=== PATIENT | male | born 1955 | race Caucasian/White ===

== ENCOUNTER 2017-05-01 09:01 | Day surgery (SDC) | payer BC ==
[2017-04-30 08:38] VITALS: BMI 28.5
[~2017-05-01 09:01] MED LIST: LACTATED RINGERS 1,000 ML IV SCH
[2017-05-01] MEDS ORDERED: LIDOCAINE 1% 20 ML VIAL (10MG/ML) FOR IV START INTRADERMA ONE (10:20)
[2017-05-01 10:26] VITALS: RESP 16; TEMP 98.5
[2017-05-01] MEDS ORDERED: LIDOCAINE 1% INJ 10MG/ML (20 ML MDV) ONE (10:39)
[2017-05-01] MEDS ORDERED: PROPOFOL 10 MG/ML 20 ML VIAL IV ONE (10:39)
--- NOTE | 2017-05-01 11:06 | P.PCN ---
Date of Procedure: 05/01/17 Preoperative Diagnosis: Postoperative Diagnosis: Procedure(s) Performed: Procedure: Total colonoscopy. Preoperative diagnosis: Screening for neoplasia. Postoperative diagnosis: Sigmoid diverticulosis with no evidence of acute diverticulitis, strictures, polyps or cancer. Preparation: HalfLytely prep. Sedation: Was provided by anesthesia. Brief clinical history: The patient is a 61-year-old male who is scheduled for this evaluation because of history of polyps for screening for neoplasia. His last exam was around 6 years ago. The patient has no abdominal complaints, bleeding or anemia. Procedure: With the patient on his left lateral decubitus position and after informed consent and adequate sedation, the perianal area was inspected and it did not show any fissures or fistulas. There were no masses felt on digital rectal examination. The Olympus CFQ 160L video colonoscope was then inserted in the rectum in the usual fashion and advanced to the cecum. There were multiple diverticular orifices seen scattered in the sigmoid with no evidence of acute diverticulitis or strictures. No polyps or tumors were seen. The mucosa appeared healthy. No other pathology noted. The patient tolerated the procedure well. Plan: The patient was reassured. Discussed dietary measures. He will follow up with you as planned. I recommended repeat exam in 5 years. Implants: Indications for Procedure: Operative Findings: Description of Procedure:
[2017-05-01 11:26] VITALS: BP 132/90; PULSE 44
== END 2017-05-01 11:45 | disposition home or self-care (01) ==
LOC: ORWHC2ENDO 09:01
DX: Z12.11 Encounter for screening for malignant neoplasm of colon (principal); K57.30 Diverticulosis of large intestine without perforation or abscess without bleeding; Z86.010 Personal history of colon polyps; I10 Essential (primary) hypertension; E78.5 Hyperlipidemia, unspecified; F17.290 Nicotine dependence, other tobacco product, uncomplicated; Z79.899 Other long term (current) drug therapy
CPT/HCPCS: J2001; J2704; G0105; 45378

== ENCOUNTER → 2017-09-23 | Outpatient (CLI) | payer BC ==
[2017-09-23 07:34] LABS: HCT 45.5 % (39.0-53.0); HGB 15.2 gm/dL (13.0-17.5); MCH 29.5 pg (25.0-35.0); MCHC 33.3 g/dL (31.0-37.0); MCV 88.7 fL (80.0-100.0); Mean Platelet Volume 6.6; Platelet Count 322 k/uL (150-450); RBC 5.13 m/uL (4.30-5.90); RDW 13.1 % (11.5-15.5); WBC 5.1 k/uL (3.8-10.6)
[2017-09-23 07:58] LABS: Appearance,Urine Clear (Clear); Bilirubin,Urine Negative (Negative); Blood,Urine Trace (Negative); Color,Urine Yellow; Glucose,Urine (UA) Negative (Negative); Ketones,Urine Negative (Negative); Leukocyte Esterase,Urine Negative (Negative); Mucus,Urine Occasional /hpf; Nitrite,Urine Negative (Negative); PH, Urine 5.5 (5.0-8.0); Protein,Urine 1+ (Negative); RBC,Urine 1 /hpf (0-5); Specific Gravity,Urine 1.019 (1.001-1.035); Urobilinogen,Urine <2.0 mg/dL (<2.0); WBC,Urine 1 /hpf (0-5)
[2017-09-23 10:28] LABS: ALT 44 U/L (21-72); AST 29 U/L (17-59); Albumin 3.9 g/dL (3.5-5.0); Alkaline Phosphatase 93 U/L (38-126); Anion Gap 7 mmol/L; Blood Urea Nitrogen 20 mg/dL (9-20); Calcium 9.9 mg/dL (8.4-10.2); Carbon Dioxide 30 mmol/L (22-30); Chloride 107 mmol/L (98-107); Cholesterol 173 mg/dL (<200); Glucose 106 mg/dL (74-99); HDL Cholesterol 38 mg/dL (40-60); LDL Cholesterol,Calculated 111 mg/dL (0-99); Potassium 4.5 mmol/L (3.5-5.1); Sodium 144 mmol/L (137-145); Total Bilirubin 0.5 mg/dL (0.2-1.3); Total Protein 6.5 g/dL (6.3-8.2); Triglycerides 122 mg/dL (<150)
[2017-09-23 10:56] LABS: Prostate Specific Antigen 0.78 ng/mL (0.00-4.00)
== END | disposition home or self-care (01) ==
LOC: LABWHC1 07:14
PROVIDERS: ATTEND Family Medicine
DX: Z00.00 Encounter for general adult medical examination without abnormal findings (principal); E78.00 Pure hypercholesterolemia, unspecified
CPT/HCPCS: 36415; 80053; 80061; 81001; 84153; 85027

== ENCOUNTER → 2018-01-23 | Outpatient (CLI) | payer BC ==
[2018-01-23 07:20] LABS: Calcium 9.7 mg/dL (8.4-10.2); Potassium 4.8 mmol/L (3.5-5.1)
== END | disposition home or self-care (01) ==
LOC: LABWHC1 06:37
PROVIDERS: ATTEND Family Medicine
DX: I10 Essential (primary) hypertension (principal)
CPT/HCPCS: 36415; 80048

== ENCOUNTER → 2019-04-13 | Outpatient (CLI) | payer BC ==
[2019-04-13 08:05] LABS: Basophils # (A) 0.1 k/uL (0-0.2); Basophils % (A) 1 %; Eosinophils # (A) 0.2 k/uL (0-0.7); Eosinophils % (A) 4 %; HCT 40.6 % (39.0-53.0); HGB 13.6 gm/dL (13.0-17.5); Lymphocytes # (A) 1.4 k/uL (1.0-4.8); Lymphocytes % (A) 27 %; MCH 29.9 pg (25.0-35.0); MCHC 33.5 g/dL (31.0-37.0); MCV 89.4 fL (80.0-100.0); Mean Platelet Volume 6.8; Monocytes # (A) 0.4 k/uL (0-1.0); Monocytes % (A) 8 %; Neutrophils % (A) 57 %; Platelet Count 279 k/uL (150-450); RBC 4.55 m/uL (4.30-5.90); RDW 12.5 % (11.5-15.5); WBC 5.2 k/uL (3.8-10.6)
[2019-04-13 11:23] LABS: African American GFR (CKD) 66.8 (60.0-200.0); Anion Gap 10.5 mmol/L (4.00-12.00); BUN/Creat Ratio 15.38 Ratio (12.00-20.00); Calcium 9.7 mg/dL (8.7-10.3); Carbon Dioxide 28.5 mmol/L (21.6-31.8); LDL Cholesterol,Calculated 95.8 mg/dL (0.0-131.0); Potassium 4.7 mmol/L (3.5-5.5); VLDL Calculation 31.2 mg/dL (5.00-40.00)
== END | disposition home or self-care (01) ==
LOC: LABWHC1 06:31
PROVIDERS: ATTEND Family Medicine
DX: Z00.00 Encounter for general adult medical examination without abnormal findings (principal); E78.00 Pure hypercholesterolemia, unspecified; I10 Essential (primary) hypertension
CPT/HCPCS: 36415; 80048; 80061; 84450; 84460; 85025; 86803

== ENCOUNTER → 2019-10-15 | Outpatient (CLI) | payer BC ==
[2019-10-15 07:58] LABS: HGB 14.9 gm/dL (13.0-17.5); MCHC 33.2 g/dL (31.0-37.0); MCV 90.5 fL (80.0-100.0); Mean Platelet Volume 7.1; Platelet Count 300 k/uL (150-450); RBC 4.97 m/uL (4.30-5.90); RDW 13.2 % (11.5-15.5); WBC 5.5 k/uL (3.8-10.6)
[2019-10-15 08:02] LABS: Appearance,Urine Clear (Clear); Bilirubin,Urine Negative (Negative); Blood,Urine Negative (Negative); Color,Urine Yellow; Glucose,Urine (UA) Negative (Negative); Ketones,Urine Negative (Negative); Leukocyte Esterase,Urine Negative (Negative); Nitrite,Urine Negative (Negative); PH, Urine 5.5 (5.0-8.0); Protein,Urine Trace (Negative); Specific Gravity,Urine 1.017 (1.001-1.035); Urobilinogen,Urine <2.0 mg/dL (<2.0)
[2019-10-15 11:30] LABS: African American GFR (CKD) 66.8 (60.0-200.0); Albumin 4.2 g/dL (3.80-4.90); Albumin/Globulin Ratio 2.1 (1.60-3.17); Anion Gap 6.8 mmol/L (4.00-12.00); BUN/Creat Ratio 16.92 Ratio (12.00-20.00); Calcium 9.8 mg/dL (8.7-10.3); Carbon Dioxide 27.2 mmol/L (21.6-31.8); Chol/HDL Ratio 3.85; LDL Cholesterol,Calculated 116.8 mg/dL (0.0-131.0); Non-African American GFR(CKD) 57.7 (60.0-200.0); Potassium 4.9 mmol/L (3.5-5.5); Total Bilirubin 0.6 mg/dL (0.2-1.2); Total Protein 6.2 g/dL (6.2-8.2); VLDL Calculation 20.2 mg/dL (5.00-40.00)
[2019-10-15 13:54] LABS: Hemoglobin A1C 5.4 % (4.0-6.0)
== END | disposition home or self-care (01) ==
LOC: LABWHC1 07:22
PROVIDERS: ATTEND Family Medicine
DX: Z00.00 Encounter for general adult medical examination without abnormal findings (principal)
CPT/HCPCS: 36415; 80053; 80061; 81003; 82272; 83036; 84153; 85027

== ENCOUNTER → 2020-10-03 | Outpatient (CLI) | payer BC ==
[2020-10-03 07:38] LABS: Appearance,Urine Clear (Clear); Bilirubin,Urine Negative (Negative); Blood,Urine Negative (Negative); Color,Urine Light Yellow; Glucose,Urine (UA) Negative (Negative); HCT 46.6 % (39.0-53.0); HGB 15.8 gm/dL (13.0-17.5); Ketones,Urine Negative (Negative); Leukocyte Esterase,Urine Negative (Negative); MCH 30.4 pg (25.0-35.0); MCHC 33.8 g/dL (31.0-37.0); MCV 89.9 fL (80.0-100.0); Mean Platelet Volume 7.1; Nitrite,Urine Negative (Negative); PH, Urine 5.5 (5.0-8.0); Platelet Count 306 k/uL (150-450); Protein,Urine Trace (Negative); RBC 5.19 m/uL (4.30-5.90); RDW 13.1 % (11.5-15.5); Specific Gravity,Urine 1.017 (1.001-1.035); Urobilinogen,Urine <2.0 mg/dL (<2.0)
[2020-10-03 12:21] LABS: African American GFR (CKD) 73.1 (60.0-200.0); Albumin 4.2 g/dL (3.80-4.90); Anion Gap 6.5 mmol/L (4.00-12.00); BUN/Creat Ratio 20.83 Ratio (12.00-20.00); Calcium 9.8 mg/dL (8.7-10.3); Carbon Dioxide 27.5 mmol/L (21.6-31.8); Globulin 2.1 g/dL (1.6-3.3); Non-African American GFR(CKD) 63.1 (60.0-200.0); Potassium 4.7 mmol/L (3.5-5.5); Total Bilirubin 0.6 mg/dL (0.2-1.2); Total Protein 6.3 g/dL (6.2-8.2)
[2020-10-03 12:30] LABS: Prostate Specific Antigen 0.7 ng/mL (0.0-4.5)
[2020-10-03 13:41] LABS: Hemoglobin A1C 5.3 % (4.0-6.0)
== END | disposition home or self-care (01) ==
LOC: LABWHC1 07:06
PROVIDERS: ATTEND Family Medicine
DX: Z00.00 Encounter for general adult medical examination without abnormal findings (principal)
CPT/HCPCS: 36415; 80053; 81003; 83036; 84153; 85027

== ENCOUNTER → 2021-07-05 | Outpatient (CLI) | payer BC ==
[2021-07-05 11:43] LABS: INR 0.9 (<1.2); Partial Thromboplastin Time 25.2 sec (22.0-30.0); Prothrombin Time 9.9 sec (9.0-12.0)
[2021-07-05 12:07] LABS: Appearance,Urine Clear (Clear); Bilirubin,Urine Negative (Negative); Blood,Urine Negative (Negative); Color,Urine Yellow; Glucose,Urine (UA) Negative (Negative); Hyaline Casts,Urine 1 /lpf (0-2); Ketones,Urine Negative (Negative); Leukocyte Esterase,Urine Negative (Negative); Mucus,Urine Occasional /hpf; Nitrite,Urine Negative (Negative); PH, Urine 5.5 (5.0-8.0); Protein,Urine 2+ (Negative); RBC,Urine <1 /hpf (0-5); Specific Gravity,Urine 1.026 (1.001-1.035); Urobilinogen,Urine <2.0 mg/dL (<2.0); WBC,Urine <1 /hpf (0-5)
[2021-07-05 16:31] LABS: Basophils # (A) 0.06 X 10*3/uL (0.00-0.10); Basophils % (A) 0.8 %; Eosinophils # (A) 0.19 X 10*3/uL (0.04-0.35); Eosinophils % (A) 2.4 %; HCT 48.8 % (39.6-50.0); Lymphocytes # (A) 1.65 X 10*3/uL (0.90-5.00); Lymphocytes % (A) 20.7 %; MCHC 32.8 g/dL (32.0-37.0); MCV 94.6 fL (80.0-97.0); Mean Platelet Volume 9.9 fL (9.5-12.2); Monocytes # (A) 0.91 X 10*3/uL (0.20-1.00); Monocytes % (A) 11.4 %; Neutrophils # (A) 5.08 X 10*3/uL (1.80-7.70); Neutrophils % (A) 63.8 %; Platelet Count 300 X 10*3/uL (140-440); RBC 5.16 X 10*6/uL (4.40-5.60); RDW 13.5 % (11.5-14.5); WBC 7.96 X 10*3/uL (4.50-10.00)
[2021-07-05 19:07] LABS: African American GFR (CKD) 60.3 (60.0-200.0); Anion Gap 11.3 mmol/L (4.00-12.00); BUN/Creat Ratio 17.21 Ratio (12.00-20.00); Blood Urea Nitrogen 24.1 mg/dL (9.0-27.0); Calcium 10.2 mg/dL (8.7-10.3); Carbon Dioxide 23.7 mmol/L (21.6-31.8); Potassium 5.1 mmol/L (3.5-5.5)
== END | disposition home or self-care (01) ==
LOC: LABWHC1 10:29
PROVIDERS: ATTEND Family Medicine
DX: Z01.812 Encounter for preprocedural laboratory examination (principal)
CPT/HCPCS: 36415; 80048; 81001; 84450; 84460; 85025; 85610; 85730

== ENCOUNTER → 2021-10-26 | Outpatient (CLI) | payer BC ==
[2021-10-26 09:10] LABS: Appearance,Urine Clear (Clear); Bilirubin,Urine Negative (Negative); Blood,Urine Negative (Negative); Color,Urine Yellow; Glucose,Urine (UA) Negative (Negative); Hyaline Casts,Urine 3 /lpf (0-2); Ketones,Urine Negative (Negative); Leukocyte Esterase,Urine Negative (Negative); Mucus,Urine Few /hpf; Nitrite,Urine Negative (Negative); PH, Urine 5.5 (5.0-8.0); Protein,Urine 1+ (Negative); RBC,Urine 1 /hpf (0-5); Specific Gravity,Urine 1.021 (1.001-1.035); Squamous Epithelial Cell,Urine <1 /hpf (0-4); Urobilinogen,Urine <2.0 mg/dL (<2.0); WBC,Urine <1 /hpf (0-5)
[2021-10-26 11:02] LABS: Basophils # (A) 0.08 X 10*3/uL (0.00-0.10); Basophils % (A) 1.3 %; Eosinophils % (A) 3.1 %; HCT 44.2 % (39.6-50.0); HGB 14.4 g/dL (13.0-17.0); Immature Grans, Automated 0.5 %; Lymphocytes # (A) 1.78 X 10*3/uL (0.90-5.00); Lymphocytes % (A) 27.9 %; MCH 29.9 pg (27.0-32.0); MCHC 32.6 g/dL (32.0-37.0); MCV 91.9 fL (80.0-97.0); Mean Platelet Volume 9.5 fL (9.5-12.2); Monocytes # (A) 0.76 X 10*3/uL (0.20-1.00); Monocytes % (A) 11.9 %; NRBC Per 100 WBC 0 /100 WBCS (0.0-0.0); Neutrophils # (A) 3.52 X 10*3/uL (1.80-7.70); Neutrophils % (A) 55.3 %; Platelet Count 329 X 10*3/uL (140-440); RBC 4.81 X 10*6/uL (4.40-5.60); RDW 12.7 % (11.5-14.5); WBC 6.37 X 10*3/uL (4.50-10.00)
[2021-10-26 11:30] LABS: ALT 16 U/L (10-49); AST 20 U/L (14-35); African American GFR (CKD) 60.3 (60.0-200.0); Albumin 4.1 g/dL (3.8-4.9); Albumin/Globulin Ratio 1.58 (1.60-3.17); Alkaline Phosphatase 111 U/L (41-126); BUN/Creat Ratio 14.64 Ratio (12.00-20.00); Blood Urea Nitrogen 20.5 mg/dL (9.0-27.0); Calcium 9.6 mg/dL (8.7-10.3); Carbon Dioxide 24.3 mmol/L (20.0-27.5); Chloride 104 mmol/L (96-109); Globulin 2.6 g/dL (1.6-3.3); Glucose 103 mg/dL (70-110); LDL Cholesterol,Calculated 149.2 mg/dL (0.0-131.0); Potassium 4.7 mmol/L (3.5-5.5); Sodium 139 mmol/L (135-145); Total Protein 6.7 g/dL (6.2-8.2)
== END | disposition home or self-care (01) ==
LOC: LABWHC1 08:04
PROVIDERS: ATTEND Family Medicine
DX: Z01.812 Encounter for preprocedural laboratory examination (principal); I10 Essential (primary) hypertension
CPT/HCPCS: 36415; 80053; 80061; 81001; 82306; 83036; 84153; 85025

== ENCOUNTER → 2021-11-07 | Outpatient (CLI) | payer BC ==
[2021-11-07 14:18] LABS: African American GFR (CKD) 60.3 (60.0-200.0); Anion Gap 10.5 mmol/L (10.00-18.00); BUN/Creat Ratio 16.43 Ratio (12.00-20.00); Calcium 10.1 mg/dL (8.7-10.3); Carbon Dioxide 24.5 mmol/L (20.0-27.5); Potassium 4.4 mmol/L (3.5-5.5)
== END | disposition home or self-care (01) ==
LOC: LABWHC1 07:30
PROVIDERS: ATTEND Family Medicine
DX: R89.9 Unspecified abnormal finding in specimens from other organs, systems and tissues (principal)
CPT/HCPCS: 36415; 80048

== ENCOUNTER 2022-05-29 07:22 | Day surgery (SDC) | payer BC ==
[~2022-05-29 07:22] MED LIST changes: +LIDOCAINE 1% (10MG/ML) FOR IV START INTRADERMA PRN
[2022-05-29 08:21] VITALS: RESP 16; TEMP 97.9
[2022-05-29] MEDS ORDERED: PROPOFOL 10 MG/ML 20 ML VIAL IV ONE (08:55)
--- NOTE | 2022-05-29 09:09 | P.PCN ---
Date of Procedure: 05/29/22 Procedure(s) Performed: BRIEF HISTORY: Patient is a 66-year-old pleasant white male scheduled for an elective colonoscopy as a part of screening for colon rectal neoplasia. PROCEDURE PERFORMED: Colonoscopy. PREOPERATIVE DIAGNOSIS: Screening for colon cancer. IV sedation per Anesthesia. PROCEDURE: After informed consent was obtained, the patient, was brought into the endoscopy unit. IV sedation was administered by Anesthesia under continuous monitoring. Digital rectal examination was normal. Initially the Olympus CF-160 flexible video colonoscope was then inserted in the rectum, gradually advanced into the cecum without any difficulty. Careful examination was performed as the scope was gradually being withdrawn. Ileocecal valve and the appendiceal orifice were visualized and appeared normal. Prep was excellent. Mucosa of the cecum, ascending colon, transverse colon, descending colon, sigmoid colon, and rectum appeared normal. Retroflexion was performed in the rectum and no lesions were seen. Scattered sigmoid diverticulosis. The patient tolerated the procedure well. IMPRESSION: Normal-appearing colon from rectum to cecum with no evidence of colorectal neoplasia . Scattered sigmoid diverticulosis. RECOMMENDATIONS: Findings of this examination were discussed with the patient as well as his family. He was advised to have a repeat screening colonoscopy in 10 years..
[2022-05-29] MEDS ORDERED: LABETALOL SYRINGE 5 MG/ML IV ONE (09:31)
[2022-05-29 09:46] VITALS: PULSE 63
[2022-05-29 09:52] VITALS: BP 183/100
== END 2022-05-29 10:01 | disposition home or self-care (01) ==
LOC: ORWHC2ENDO 07:22
PROVIDERS: ATTEND Internal Medicine Gastroenterology
DX: Z12.11 Encounter for screening for malignant neoplasm of colon (principal); K57.32 Diverticulitis of large intestine without perforation or abscess without bleeding; I10 Essential (primary) hypertension; E78.5 Hyperlipidemia, unspecified; Z87.891 Personal history of nicotine dependence
CPT/HCPCS: 45378; J2704

== ENCOUNTER → 2022-07-02 | Outpatient (CLI) | payer BC ==
[2022-07-02 13:05] LABS: INR 0.9 (<1.2); Partial Thromboplastin Time 25.6 sec (22.0-30.0); Prothrombin Time 10.3 sec (9.0-12.0)
[2022-07-02 18:17] LABS: Basophils # (A) 0.06 X 10*3/uL (0.00-0.10); Basophils % (A) 0.9 %; Eosinophils # (A) 0.14 X 10*3/uL (0.04-0.35); Eosinophils % (A) 2.1 %; HCT 42.2 % (39.6-50.0); HGB 14.6 g/dL (13.0-17.0); Immature Grans, Automated 0.6 %; Lymphocytes # (A) 1.85 X 10*3/uL (0.90-5.00); Lymphocytes % (A) 28.1 %; MCH 31.1 pg (27.0-32.0); MCHC 34.6 g/dL (32.0-37.0); Mean Platelet Volume 9.5 fL (9.5-12.2); Monocytes # (A) 0.68 X 10*3/uL (0.20-1.00); Monocytes % (A) 10.3 %; NRBC Per 100 WBC 0 /100 WBCS (0.0-0.0); Neutrophils # (A) 3.82 X 10*3/uL (1.80-7.70); Platelet Count 302 X 10*3/uL (140-440); RBC 4.69 X 10*6/uL (4.40-5.60); RDW 12.9 % (11.5-14.5); WBC 6.59 X 10*3/uL (4.50-10.00)
[2022-07-02 18:25] LABS: African American GFR (CKD) 58.3 (60.0-200.0); Anion Gap 10.4 mmol/L (10.00-18.00); BUN/Creat Ratio 13.64 Ratio (12.00-20.00); Blood Urea Nitrogen 19.5 mg/dL (9.0-27.0); Calcium 9.8 mg/dL (8.7-10.3); Carbon Dioxide 25.6 mmol/L (20.0-27.5); Non-African American GFR(CKD) 50.3 (60.0-200.0); Potassium 4.7 mmol/L (3.5-5.5)
[2022-07-02 19:50] LABS: Appearance,Urine Clear (Clear); Bilirubin,Urine Negative (Negative); Blood,Urine Negative (Negative); Color,Urine Dark Yellow (Yellow); Ketones,Urine Trace mg/dL (Negative); Nitrite,Urine Negative (Negative); PH, Urine 5.5 (5.0-8.0); Specific Gravity,Urine 1.019 (1.001-1.030)
[2022-07-02 19:56] LABS: Bacteria,Urine None Seen /HPF (None Seen)
== END | disposition home or self-care (01) ==
LOC: LABWHC1 12:20
PROVIDERS: ATTEND Family Medicine
DX: Z01.812 Encounter for preprocedural laboratory examination (principal)
CPT/HCPCS: 36415; 80048; 81001; 84450; 84460; 85025; 85610; 85730

== ENCOUNTER → 2022-07-10 | Outpatient (CLI) | payer BC ==
[2022-07-10 16:14] LABS: African American GFR (CKD) 54 (>60 ml/min/1.73 sqM); Anion Gap 10 mmol/L; Blood Urea Nitrogen 21 mg/dL (9-20); Calcium 9.3 mg/dL (8.4-10.2); Carbon Dioxide 26 mmol/L (22-30); Chloride 104 mmol/L (98-107); Glucose 98 mg/dL (74-99); Non-African American GFR(CKD) 46 (>60 ml/min/1.73 sqM); Potassium 4.5 mmol/L (3.5-5.1); Sodium 140 mmol/L (137-145)
[2022-07-10 16:20] LABS: Creatinine 24 Hour,Urine 1987.3 mg/24hr (1000.0-2000.0)
[2022-07-11 08:19] LABS: Total Protein 24 Hour,Urine 552.5 mg/24Hr (0.0-165.0); Total Volume 24 Hour,Urine 1700 mL
== END ==
LOC: LABWHC1 07-09 12:24
PROVIDERS: ATTEND Family Medicine
DX: Z01.812 Encounter for preprocedural laboratory examination (principal); R89.9 Unspecified abnormal finding in specimens from other organs, systems and tissues
CPT/HCPCS: 36415; 80048; 81050; 82575; 84156

== ENCOUNTER → 2022-08-13 | Outpatient (CLI) | payer BC ==
--- NOTE | 2022-08-13 16:35 | US ---
EXAMINATION TYPE: US kidneys/renal and bladder DATE OF EXAM: 08/13/2022 COMPARISON: NONE CLINICAL HISTORY: R89.9 ABN FINDING IN SPECIMENS FROM OTHER ORGANS. EXAM MEASUREMENTS: Right Kidney: 8.5 x 4.3 x 5.0 cm Left Kidney: 12.6 x 5.6 x 4.9 cm Right Kidney: multiple cysts noted, inferior cyst with slightly irregular borders and possible physician internist al echoes measuring 2.8 x 3. 2 x 2.7cm, there is a possible mass midline measuring 2.8 x 2.2 x 2.0cm, superior cyst with internal echoes measuring 2.5 x 1.9 x 1.9cm Left Kidney: possible lateral mass measuring 4.0 x 3.9 x 4.2cm, this was more difficult to see in tra nsverse and may be lobular contour with mass effect Bladder: uterocele vs other etiology IMPRESSION: Possible masses bilateral kidneys with suggestion of ureterocele in the left urinary bladder. Additio nal workup with contrast CT is recommended.
== END | disposition home or self-care (01) ==
LOC: RADUSWWP 13:40
PROVIDERS: ATTEND Family Medicine
DX: R89.9 Unspecified abnormal finding in specimens from other organs, systems and tissues (principal)
CPT/HCPCS: 76770

== ENCOUNTER → 2022-09-17 | Outpatient (CLI) | payer BC ==
--- NOTE | 2022-09-17 16:16 | CT ---
EXAMINATION TYPE: CT abdomen w con CT DLP: 902.7 mGycm, Automated exposure control for dose reduction was used. 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 Sagittal and coronal reformats were created on a separate works tation. With and without IV contrast. Contrast used:70ml mL of Isovue 300 with IV Contrast, Oral contrast used: with Oral Contrast FINDINGS: LOWER CHEST: Unremarkable ABDOMEN LIVER: Unremarkable GALLBLADDER AND BILE DUCTS: Unremarkable. PANCREAS: Unremarkable. SPLEEN: Unremarkable. ADRENAL GLANDS: Unremarkable. KIDNEYS AND URETERS: Bilateral renal cysts. Cysts measure up to 2.7 cm on the right hand 1.2 cm is o n the left. There is a lobulated contour to the kidneys bilaterally. Scattered areas of cortical thin jerzy on the left. No evidence of hydronephrosis or renal calculus. The visualized ureters are unremar kable. Distal ureters are not visualized. STOMACH AND BOWEL: No evidence of bowel obstruction. PERITONEUM/RETROPERITONEUM: No evidence of pneumoperitoneum or free fluid. VASCULATURE: No evidence of aortic aneurysm. MUSCULOSKELETAL: No acute osseous abnormalities, multilevel disc degeneration changes with osteophyte s and disc bulging present. LYMPH NODES: No gross evidence for lymphadenopathy. SOFT TISSUE/ABDOMINAL WALL: Unremarkable IMPRESSION: Lobulated kidney contour with bilateral renal cysts. No evidence for suspicious mass. No urolithiasis or obstructive uropathy. The urinary bladder was not in the [id number] on this CT abdomen renal p rotocol exam.
== END | disposition home or self-care (01) ==
LOC: RADCTMAIN 14:44
PROVIDERS: ATTEND Family Medicine
DX: N28.1 Cyst of kidney, acquired (principal); N28.89 Other specified disorders of kidney and ureter
CPT/HCPCS: 82565; 84520; 74160; 36415; Q9967 ×2

== ENCOUNTER → 2023-02-13 | Outpatient (CLI) | payer BC ==
[2023-02-13 08:26] LABS: Creatinine,Urine Random 154.4 mg/dL; Protein/Creatinine Ratio,Urine 0.162
[2023-02-13 10:54] LABS: Basophils # (A) 0.06 X 10*3/uL (0.00-0.10); Basophils % (A) 1.2 %; Eosinophils # (A) 0.19 X 10*3/uL (0.04-0.35); Eosinophils % (A) 3.9 %; HCT 40.9 % (39.6-50.0); HGB 13.3 g/dL (13.0-17.0); Immature Grans, Automated 0.6 %; Lymphocytes % (A) 24.6 %; MCH 29.8 pg (27.0-32.0); MCHC 32.5 g/dL (32.0-37.0); MCV 91.5 fL (80.0-97.0); Monocytes # (A) 0.53 X 10*3/uL (0.20-1.00); Monocytes % (A) 10.9 %; NRBC Per 100 WBC 0 /100 WBCS (0.0-0.0); Neutrophils # (A) 2.86 X 10*3/uL (1.80-7.70); Neutrophils % (A) 58.8 %; Platelet Count 376 X 10*3/uL (140-440); RBC 4.47 X 10*6/uL (4.40-5.60); RDW 12.9 % (11.5-14.5); WBC 4.87 X 10*3/uL (4.50-10.00)
[2023-02-13 11:12] LABS: % Iron Saturation 22.35 (15.00-50.00); ALT 17 U/L (10-49); AST 19 U/L (14-35); Alkaline Phosphatase 136 U/L (41-126); BUN/Creat Ratio 15.46 Ratio (12.00-20.00); Blood Urea Nitrogen 20.1 mg/dL (9.0-27.0); Calcium 9.8 mg/dL (8.7-10.3); Carbon Dioxide 24.5 mmol/L (20.0-27.5); Chloride 106 mmol/L (96-109); Glucose 119 mg/dL (70-110); Iron 68 ug/dL (65-175); Non-African American GFR(CKD) 56.1 (60.0-200.0); Phosphorus 3.4 mg/dL (2.4-5.1); Potassium 4.8 mmol/L (3.5-5.5); Sodium 141 mmol/L (135-145); Total Iron Binding Capacity 305 ug/dL (228-460); Uric Acid 7.7 mg/dL (3.7-8.7)
[2023-02-13 11:17] LABS: Chol/HDL Ratio 3.83 Ratio; Creatine Kinase 180 U/L (35-257); LDL Cholesterol,Calculated 92.9 mg/dL (0.0-131.0); VLDL Calculation 17.16 mg/dL (5.00-40.00)
[2023-02-13 11:31] LABS: Appearance,Urine Clear (Clear); Bilirubin,Urine Negative (Negative); Blood,Urine Negative (Negative); Color,Urine Yellow (Yellow); Ketones,Urine Negative (Negative); Nitrite,Urine Negative (Negative); PH, Urine 5.5 (5.0-8.0); Specific Gravity,Urine 1.019 (1.001-1.030); Urobilinogen,Urine 0.2 (0.2,1.0)
[2023-02-13 14:25] LABS: Anti-DNA, DS unit <1.0 IU/mL; DNA Double-Stranded NEGATIVE (NEGATIVE)
[2023-02-14 12:36] LABS: Free Kappa Lt Chain Qnt, Serum 3.62 mg/dL (0.33-1.94); Free Lambda Lt Chain Qnt, Seru 3.03 mg/dL (0.57-2.63)
[2023-02-14 13:50] LABS: C-ANCA <1:20 Titer (<1:20)
== END | disposition home or self-care (01) ==
LOC: LABWHC1 07:01
PROVIDERS: ATTEND Internal Medicine Nephrology
DX: Z00.00 Encounter for general adult medical examination without abnormal findings (principal); E55.9 Vitamin D deficiency, unspecified; N25.81 Secondary hyperparathyroidism of renal origin; M10.9 Gout, unspecified; N39.0 Urinary tract infection, site not specified; D63.1 Anemia in chronic kidney disease; N18.31 Chronic kidney disease, stage 3a
CPT/HCPCS: 36415; 80053; 80061; 81001; 82043; 82306; 82550; 82570; 82728; 83036; 83516; 83540; 83550; 83735; 83883; 83970; 84100; 84153; 84156; 84550; 85025; 86038; 86160; 86162; 86225; 86255; 86334; 86335

== ENCOUNTER → 2023-07-24 | Outpatient (CLI) | payer BC ==
[2023-07-24 14:18] LABS: Appearance,Urine Clear (Clear); Bilirubin,Urine Negative (Negative); Blood,Urine Negative (Negative); Color,Urine Yellow; Glucose,Urine (UA) Negative (Negative); Ketones,Urine Negative (Negative); Leukocyte Esterase,Urine Negative (Negative); Mucus,Urine Rare /hpf; Nitrite,Urine Negative (Negative); PH, Urine 5.5 (5.0-8.0); Protein,Urine 1+ (Negative); RBC,Urine 2 /hpf (0-5); Specific Gravity,Urine 1.019 (1.001-1.035); Urobilinogen,Urine <2.0 mg/dL (<2.0); WBC,Urine <1 /hpf (0-5)
[2023-07-24 14:25] LABS: INR 0.9 (<1.2); Partial Thromboplastin Time 26.5 sec (22.0-30.0); Prothrombin Time 10.2 sec (10.0-12.5)
[2023-07-24 21:48] LABS: Basophils # (A) 0.04 X 10*3/uL (0.00-0.10); Basophils % (A) 0.6 %; Eosinophils # (A) 0.18 X 10*3/uL (0.04-0.35); Eosinophils % (A) 2.8 %; HGB 14.4 g/dL (13.0-17.0); Lymphocytes # (A) 1.49 X 10*3/uL (0.90-5.00); MCH 30.6 pg (27.0-32.0); MCHC 32.7 g/dL (32.0-37.0); MCV 93.6 FL (80.0-97.0); Mean Platelet Volume 9.3 FL (9.5-12.2); Monocytes # (A) 0.73 X 10*3/uL (0.20-1.00); Monocytes % (A) 11.3 %; NRBC Per 100 WBC 0 X 10*3/uL (0.00-0.01); Neutrophils # (A) 3.97 X 10*3/uL (1.80-7.70); Neutrophils % (A) 61.4 %; Platelet Count 326 X 10*3/uL (140-440); RDW 13.5 % (11.5-14.5); WBC 6.47 X 10*3/uL (4.50-10.00)
[2023-07-25 02:52] LABS: ALT 16 U/L (10-49); AST 16 U/L (14-35); Albumin/Globulin Ratio 1.67 Ratio (1.60-3.17); Alkaline Phosphatase 138 U/L (41-126); BUN/Creat Ratio 15.86 Ratio (12.00-20.00); Blood Urea Nitrogen 22.2 mg/dL (9.0-27.0); Calcium 9.9 mg/dL (8.7-10.3); Carbon Dioxide 26.5 mmol/L (21.6-31.8); Chloride 104 mmol/L (96-109); Globulin 2.4 g/dL (1.6-3.3); Glucose 91 mg/dL (70-110); Potassium 4.8 mmol/L (3.5-5.5); Sodium 139 mmol/L (135-145); Total Bilirubin 0.4 mg/dL (0.3-1.2); Total Protein 6.4 g/dL (6.2-8.2)
== END | disposition home or self-care (01) ==
LOC: LABWHC1 10:34
PROVIDERS: ATTEND Family Medicine
DX: Z01.812 Encounter for preprocedural laboratory examination (principal)
CPT/HCPCS: 36415; 80053; 81001; 85025; 85610; 85730

== ENCOUNTER → 2024-01-28 | Outpatient (CLI) | payer BC ==
[2024-01-28 14:31] LABS: Appearance,Urine Clear (Clear); Bilirubin,Urine Negative (Negative); Blood,Urine Negative (Negative); Color,Urine Yellow (Yellow); Ketones,Urine Negative (Negative); Nitrite,Urine Negative (Negative); Specific Gravity,Urine 1.017 (1.001-1.030); Urobilinogen,Urine 0.2 E.U./DL
[2024-01-28 14:34] LABS: HCT 44.7 % (39.6-50.0); HGB 14.8 g/dL (13.0-17.0); MCH 30.5 pg (27.0-32.0); MCHC 33.1 g/dL (32.0-37.0); Mean Platelet Volume 9.6 FL (9.5-12.2); NRBC Per 100 WBC 0 X 10*3/uL (0.00-0.01); Platelet Count 351 X 10*3/uL (140-440); RBC 4.86 X 10*6/uL (4.40-5.60); RDW 13.3 % (11.5-14.5); WBC 6.85 X 10*3/uL (4.50-10.00)
[2024-01-28 15:06] LABS: ALT 15 U/L (10-49); AST 21 U/L (14-35); Albumin 4.2 g/dL (3.8-4.9); Albumin/Globulin Ratio 1.75 Ratio (1.60-3.17); Alkaline Phosphatase 154 U/L (41-126); BUN/Creat Ratio 12.69 Ratio (12.00-20.00); Blood Urea Nitrogen 16.5 mg/dL (9.0-27.0); Carbon Dioxide 27.1 mmol/L (21.6-31.8); Chloride 104 mmol/L (96-109); Chol/HDL Ratio 3.81 Ratio; Globulin 2.4 g/dL (1.6-3.3); Glucose 102 mg/dL (70-110); LDL Cholesterol,Calculated 90.1 mg/dL (0.0-131.0); Potassium 4.5 mmol/L (3.5-5.5); Sodium 141 mmol/L (135-145); Total Bilirubin 0.8 mg/dL (0.3-1.2); Total Protein 6.6 g/dL (6.2-8.2)
== END | disposition home or self-care (01) ==
LOC: LABWHC1 06:52
PROVIDERS: ATTEND Family Medicine
DX: Z00.00 Encounter for general adult medical examination without abnormal findings (principal); E66.3 Overweight
CPT/HCPCS: 36415; 80053; 80061; 81003; 82306; 83036; 84153; 84443; 85027

== ENCOUNTER → 2024-11-11 | Outpatient (CLI) | payer BC ==
[2024-11-11 10:49] LABS: HCT 45.9 % (39.6-50.0); HGB 15.7 g/dL (13.0-17.0); MCH 31.3 pg (27.0-32.0); MCHC 34.2 g/dL (32.0-37.0); MCV 91.4 FL (80.0-97.0); Mean Platelet Volume 9.6 FL (9.5-12.2); NRBC Per 100 WBC 0 X 10*3/uL (0.00-0.01); Platelet Count 328 X 10*3/uL (140-440); RBC 5.02 X 10*6/uL (4.40-5.60); WBC 5.36 X 10*3/uL (4.50-10.00)
[2024-11-11 11:09] LABS: ALT 23 U/L (10-49); AST 27 U/L (14-35); Albumin 4.2 g/dL (3.8-4.9); Albumin/Globulin Ratio 1.68 Ratio (1.60-3.17); Alkaline Phosphatase 140 U/L (41-126); BUN/Creat Ratio 14.14 Ratio (12.00-20.00); Blood Urea Nitrogen 19.8 mg/dL (9.0-27.0); Calcium 10.1 mg/dL (8.7-10.3); Carbon Dioxide 25.7 mmol/L (21.6-31.8); Chloride 107 mmol/L (96-109); Chol/HDL Ratio 3.84 Ratio; Globulin 2.5 g/dL (1.6-3.3); Glucose 114 mg/dL (70-110); LDL Cholesterol,Calculated 101.9 mg/dL (0.0-131.0); Potassium 4.7 mmol/L (3.5-5.5); Prostate Specific Antigen 1.18 ng/mL (0.000-4.500); Sodium 142 mmol/L (135-145); Total Bilirubin 0.7 mg/dL (0.3-1.2); Total Protein 6.7 g/dL (6.2-8.2)
[2024-11-11 11:14] LABS: Appearance,Urine Clear (Clear); Bilirubin,Urine Negative (Negative); Blood,Urine Negative (Negative); Color,Urine Yellow (Yellow); Ketones,Urine Negative (Negative); Nitrite,Urine Negative (Negative); Specific Gravity,Urine 1.017 (1.001-1.030); Urobilinogen,Urine 0.2 E.U./DL
== END | disposition home or self-care (01) ==
LOC: LABWHC1 07:04
PROVIDERS: ATTEND Family Medicine
DX: Z00.00 Encounter for general adult medical examination without abnormal findings (principal)
CPT/HCPCS: 36415; 80053; 80061; 81003; 82306; 83036; 84153; 84443; 85027